=== PATIENT | female | born 1965 | race Two or more races ===

== ENCOUNTER → 2018-01-24 | Outpatient (CLI) | payer BC ==
--- NOTE | 2018-01-25 16:09 | Diagnostic Imaging Report ---
EXAMINATION: MRI of the cervical spine without contrast HISTORY: Neck pain, cervical radiculopathy COMPARISON: None available TECHNIQUE: Sagittal T1, T2, STIR; axial T2, gradient echo. FINDINGS: Curvature: Normal lordosis. Vertebrae: No evidence of neoplasm, infection, or fracture. Foramen magnum: No mass, Chiari malformation, or basilar invagination. Spinal Cord: Normal size and signal intensity. Soft Tissues: Unremarkable. Degenerative changes: C1-C2: Unremarkable. C2-C3: Facet arthrosis on the left side. No canal or foraminal stenoses C3-C4: Unremarkable. C4-C5: Mild bilateral facet arthrosis without stenoses C5-C6: Small disc osteophyte, mild uncovertebral and facet arthrosis. Minimal canal narrowing. No significant foraminal stenosis. C6-C7: Mild symmetric disc bulge, uncovertebral and facet arthrosis. No significant canal or foraminal stenosis. Possible partial ossification of the posterior longitudinal ligament at C5 and C6 without associated significant stenosis. C7-T1: Unremarkable. IMPRESSION: 1. Mild chronic degenerative changes as detailed above, without significant canal or foraminal stenosis. 2. Normal cervical spinal cord. Signed by: Dr. Yoselin Braun M.D. on 01/25/2018 4:06 PM
== END ==
LOC: MRI 12:08
PROVIDERS: ATTEND Family Medicine
DX: M50.10 Cervical disc disorder with radiculopathy, unspecified cervical region (principal)
CPT/HCPCS: 72141

== ENCOUNTER → 2018-02-25 | Outpatient (RCR) | payer BC | LOC: PT 02-03 08:39 | PROVIDERS: ATTEND Family Medicine | DX: M54.2 Cervicalgia (principal); M53.82 Other specified dorsopathies, cervical region; M62.81 Muscle weakness (generalized) | CPT/HCPCS: 97010 ×7; 97110 ×8; 97140 ×8; 97161; G0283 ×4 ==

== ENCOUNTER 2018-03-01 09:17 | Outpatient (RCR) | payer BC | END 2018-03-27 | LOC: PT 09:17 | PROVIDERS: ATTEND Family Medicine | DX: M54.2 Cervicalgia (principal); M53.82 Other specified dorsopathies, cervical region; M62.81 Muscle weakness (generalized) ==

== ENCOUNTER → 2018-07-28 | Outpatient (CLI) | payer BC | LOC: US 10:29 | PROVIDERS: ATTEND Obstetrics & Gynecology | DX: N92.1 Excessive and frequent menstruation with irregular cycle (principal) ==

== ENCOUNTER → 2018-11-23 | Outpatient (CLI) | payer BC ==
[2018-11-23 08:02] LABS: BASOPHILS % 0.3 % (0.0-1.0); EOSINOPHILS # (AUTO) 0.3 (0.0-0.4); EOSINOPHILS % 3.2 % (0.0-6.0); HEMATOCRIT 36.8 % (34.2-44.1); HEMOGLOBIN 11.9 g/dL (12.0-16.0); LYMPHOCYTES # (AUTO) 2.8 (1.0-3.2); LYMPHOCYTES % 29.5 % (18.0-39.1); MEAN CORPUSCULAR HEMOGLOBIN 26.5 pg (28-32); MEAN CORPUSCULAR HGB CONC 32.3 g/dL (31-35); MONOCYTES # (AUTO) 0.5 (0.2-0.8); MONOCYTES % 5.7 % (4.4-11.3); NEUTROPHILS # (AUTO) 5.8 (2.1-6.9); NEUTROPHILS % 61.1 % (38.7-80.0); PLATELET COUNT 351 x10e3/uL (140-360); RED BLOOD COUNT 4.49 x10e6/uL (3.6-5.1); RED CELL DISTRIBUTION WIDTH 13.3 % (11.7-14.4)
[2018-11-23 08:39] LABS: ALANINE AMINOTRANSFERASE 15 IU/L (0-55); ALBUMIN 3.6 g/dL (3.5-5.0); ALKALINE PHOSPHATASE 73 IU/L (40-150); BLOOD UREA NITROGEN 14 mg/dL (7-26); BUN/CREATININE RATIO 19 (6-25); CALCIUM 9.7 mg/dL (8.4-10.2); CARBON DIOXIDE 27 mmol/L (22-29); CHLORIDE 102 mmol/L (98-107); CHOL/HDL RATIO 2.9 (3.0-3.6); CHOLESTEROL 205 MD/DL (0-199); CREATININE, SERUM 0.72 mg/dL (0.57-1.11); EST GLOMERULAR FILTRATION RATE > 60 ML/MIN (60-); GLUCOSE 132 mg/dL (74-118); HDL CHOLESTEROL 71 MG/DL (40-60); LDL CHOLESTEROL 117 MG/DL (60-130); SODIUM 135 mmol/L (136-145); TRIGLYCERIDES 83 MG/DL (0-149)
[2018-11-23 08:44] LABS: FREE THYROXINE INDEX 2.5038 (1.4-3.8); THYROID STIMULATING HORMONE 1.119 uIU/mL (0.350-4.940)
== END ==
LOC: LAB 07:26
PROVIDERS: ATTEND Family Medicine
DX: Z00.00 Encounter for general adult medical examination without abnormal findings (principal); E11.9 Type 2 diabetes mellitus without complications; I10 Essential (primary) hypertension; E78.5 Hyperlipidemia, unspecified
CPT/HCPCS: 36415; 80053; 80061; 83036; 84436; 84443; 84479; 85025

== ENCOUNTER → 2019-03-02 | Outpatient (CLI) | payer BC ==
[2019-03-22 08:05] LABS: BASOPHILS % 0.3 % (0.0-1.0); EOSINOPHILS # (AUTO) 0.3 (0.0-0.4); EOSINOPHILS % 2.5 % (0.0-6.0); HEMATOCRIT 38.7 % (34.2-44.1); HEMOGLOBIN 12.1 g/dL (12.0-16.0); LYMPHOCYTES # (AUTO) 4.8 (1.0-3.2); LYMPHOCYTES % 43.8 % (18.0-39.1); MEAN CORPUSCULAR HEMOGLOBIN 25.2 pg (28-32); MEAN CORPUSCULAR HGB CONC 31.3 g/dL (31-35); MEAN CORPUSCULAR VOLUME 80.6 fL (81-99); MONOCYTES # (AUTO) 0.7 (0.2-0.8); MONOCYTES % 6.4 % (4.4-11.3); NEUTROPHILS # (AUTO) 5.1 (2.1-6.9); NEUTROPHILS % 46.6 % (38.7-80.0); PLATELET COUNT 307 x10e3/uL (140-360); RED CELL DISTRIBUTION WIDTH 13.6 % (11.7-14.4)
[2019-03-22 08:24] LABS: ALANINE AMINOTRANSFERASE 44 IU/L (0-55); ALBUMIN 3.5 g/dL (3.5-5.0); ALBUMIN/GLOBULIN RATIO 0.8 (0.8-2.0); ALKALINE PHOSPHATASE 94 IU/L (40-150); ANION GAP 13.1 mmol/L (8-16); BLOOD UREA NITROGEN 11 mg/dL (7-26); BUN/CREATININE RATIO 14 (6-25); CALCIUM 10.1 mg/dL (8.4-10.2); CARBON DIOXIDE 28 mmol/L (22-29); CHLORIDE 100 mmol/L (98-107); EST GLOMERULAR FILTRATION RATE > 60 ML/MIN (60-); GLUCOSE 118 mg/dL (74-118); POTASSIUM 4.1 mmol/L (3.5-5.1); SODIUM 137 mmol/L (136-145)
[2019-03-22 08:47] LABS: FREE THYROXINE INDEX 3.1112 (1.4-3.8); THYROID STIMULATING HORMONE 0.817 uIU/mL (0.350-4.940)
== END ==
LOC: MRI 07:46
PROVIDERS: ATTEND Family Medicine
DX: R42 Dizziness and giddiness (principal); R53.83 Other fatigue; R55 Syncope and collapse; R51 Headache; R19.7 Diarrhea, unspecified
CPT/HCPCS: 36415; 80053; 83001; 83615; 84436; 84443; 84479; 85025

== ENCOUNTER → 2019-04-03 | Outpatient (CLI) | payer BC ==
--- NOTE | 2019-04-03 17:04 | Diagnostic Imaging Report ---
MRI BRAIN WO HISTORY: Dizziness COMPARISON: None. TECHNIQUE: Sagittal T2, axial T2, axial T1, axial T2/FLAIR, axial gradient echo (or susceptibility weighted), coronal T2/FLAIR, and axial diffusion weighted MR images of the brain were obtained without contrast. DISCUSSION: Scalp/bone marrow: Unremarkable. Brain sulci: Appropriate for patient's age. Ventricles: Normal in size and configuration. No hydrocephalus. Extra-axial spaces: No masses or fluid collections. Parenchyma: Scattered T2/FLAIR hyperintense foci throughout the supratentorial white matter are likely chronic microvascular ischemic changes. Subtle focal encephalomalacia in the posterior medial right cerebellum may be from remote infarct. Otherwise, no mass, hemorrhage, or acute vascular insults. Vessels: Normal flow voids in major arteries and veins. Sellar/Suprasellar region: No abnormalities. Craniocervical junction: No abnormalities. Incidental findings: Moderate to severe diffuse left-sided T2 hyperintense paranasal sinus mucosal thickening is present. Trace bilateral mastoid effusions are present. IMPRESSION: 1. No acute intracranial abnormalities. 2. 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 3. Mild supratentorial chronic microvascular ischemic change. 4. Moderate to severe diffuse left-sided paranasal sinus mucosal thickening. Signed by: Dr. Miguelangel Krishna M.D. on 04/03/2019 5:01 PM
== END ==
LOC: MRI 11:53
PROVIDERS: ATTEND Family Medicine
DX: R42 Dizziness and giddiness (principal); R55 Syncope and collapse; R53.83 Other fatigue
CPT/HCPCS: 70551; 93880

== ENCOUNTER → 2019-05-12 | Outpatient (CLI) | payer BC | LOC: SLEEP 20:02 | PROVIDERS: ATTEND Family Medicine | DX: G47.33 Obstructive sleep apnea (adult) (pediatric) (principal) | CPT/HCPCS: 95810 ==

== ENCOUNTER → 2019-05-19 | Outpatient (CLI) | payer BC ==
--- NOTE | 2019-05-19 16:04 | Diagnostic Imaging Report ---
#[id number] - [id number] #UNILATERAL RIGHT DIGITAL DIAGNOSTIC MAMMOGRAM WITH SPOT COMPRESSION: 05/19/2019 Comparison is made to exams dated: 04/21/2019 mammogram - [facility] and 10/13/2017 mammogram - [facility]. The tissue of the right breast is heterogeneously dense. This may lower the sensitivity of mammography. There is a benign mass in the right breast. No significant masses, calcifications, or other findings are seen in the breast. There has been no significant interval change. IMPRESSION: BENIGN There is no mammographic evidence of malignancy. A 1 year screening mammogram is recommended. The patient will be notified by letter of the results. DEBBI CORTEZ M.D. kw/:05/19/2019 15:43:32 Dynamometer Tuner: Lakeisha MALIK(R)(M), [facility] letter sent: Compared to Prior B9 Mammogram BI-RADS: 2 Benign
--- NOTE | 2019-05-19 16:04 | Diagnostic Imaging Report ---
#[id number] - USBRELIMRT ULTRASOUND OF THE RIGHT BREAST : 05/19/2019 Comparison is made to exams dated: 05/19/2019 mammogram and 04/21/2019 mammogram - [facility]. Color flow and real-time ultrasound were performed on the right breast. Baron scale images of the real-time examination were reviewed. IMPRESSION: NEGATIVE There is no sonographic evidence of malignancy. A 1 year screening mammogram is recommended. DEBBI porter/pasquale:05/19/2019 15:44:28 Shipyard Painter Helper: Nela Isaac [facility], [facility] Ultrasound BI-RADS: 1 Negative
== END ==
LOC: MAMMO 13:31
PROVIDERS: ATTEND Family Medicine
DX: N63.10 Unspecified lump in the right breast, unspecified quadrant (principal)

== ENCOUNTER → 2019-06-17 | Outpatient (CLI) | payer BC ==
--- NOTE | 2019-06-30 03:49 | Polysomnography ---
DATE OF STUDY: 06/17/2019 REFERRING PHYSICIAN: Anthony Mcmahon TITRATION POLYSOMNOGRAM HISTORY: This is a 53-year-old female with obstructive sleep apnea. On May 12, 2019, diagnostic polysomnogram demonstrated an apnea-hypopnea index of 8.4 events per hour, 27.6 events per hour of REM sleep and the lowest oxygen saturation of 76%. There were additional periodic limb movement at 19.8 events per hours during the diagnostic portion as well as some PVCs. The patient had an [place] Sleepiness Scale score of 1. BMI is 26.9. The patient presents for a titration polysomnogram. FINDINGS: Polysomnogram revealed total sleep time of 347.5 minutes with a sleep efficiency of 91.4%. CPAP was initiated at 5 cm of water pressure, and incrementally increased to 11 cm of water delivered using a ResMed AirFit P10 for Her pillows interface in extra-small (ES) size, heated humidifier and chin-strap. Sleep apnea was optimally corrected at the final pressure setting of 11 cm water with the apnea-hypopnea index was 0 events per hour and the lowest oxygen saturation was 95%. This was an excellent titration with extensive supine REM sleep being studied. The periodic limb movement index was 0 events per hour. Single lead EKG analysis was unremarkable without PVCs noted. INTERPRETATION: This overnight CPAP titration study revealed: 1. Significant improvement in terms of the alleviation of obstructive sleep apnea. The optimal CPAP pressure of 11 cm of water delivered using a ResMed AirFit P10 for Her interface in Extra-Small size, heated humidifier and chin-strap. The same settings are recommended for use during sleep. MD KIN Field Certified in Sleep Medicine GMN/MODL /[id number] KELLY
== END ==
LOC: SLEEP 20:39
PROVIDERS: ATTEND Family Medicine
DX: G47.33 Obstructive sleep apnea (adult) (pediatric) (principal)
CPT/HCPCS: 95811

== ENCOUNTER → 2019-11-23 | Outpatient (CLI) | payer BC ==
[2019-11-23 07:57] LABS: BASOPHILS % 0.2 % (0.0-1.0); EOSINOPHILS # (AUTO) 0.3 (0.0-0.4); EOSINOPHILS % 2.6 % (0.0-6.0); HEMATOCRIT 39.6 % (34.2-44.1); HEMOGLOBIN 12.7 g/dL (12.0-16.0); LYMPHOCYTES # (AUTO) 3.6 (1.0-3.2); LYMPHOCYTES % 37.9 % (18.0-39.1); MEAN CORPUSCULAR HEMOGLOBIN 27.6 pg (28-32); MEAN CORPUSCULAR HGB CONC 32.1 g/dL (31-35); MEAN CORPUSCULAR VOLUME 86.1 fL (81-99); MONOCYTES # (AUTO) 0.5 (0.2-0.8); MONOCYTES % 5.4 % (4.4-11.3); NEUTROPHILS # (AUTO) 5.1 (2.1-6.9); NEUTROPHILS % 53.6 % (38.7-80.0); PLATELET COUNT 314 x10e3/uL (140-360); RED CELL DISTRIBUTION WIDTH 13.2 % (11.7-14.4)
[2019-11-23 08:19] LABS: ALANINE AMINOTRANSFERASE 24 IU/L (0-55); ALBUMIN 3.9 g/dL (3.5-5.0); ALKALINE PHOSPHATASE 78 IU/L (40-150); ANION GAP 11.3 mmol/L (8-16); BLOOD UREA NITROGEN 11 mg/dL (7-26); BUN/CREATININE RATIO 15 (6-25); CALCIUM 10.3 mg/dL (8.4-10.2); CARBON DIOXIDE 27 mmol/L (22-29); CHLORIDE 104 mmol/L (98-107); CHOL/HDL RATIO 2.5 (3.0-3.6); CHOLESTEROL 147 MD/DL (0-199); CREATININE, SERUM 0.74 mg/dL (0.57-1.11); EST GLOMERULAR FILTRATION RATE > 60 ML/MIN (60-); GLUCOSE 138 mg/dL (74-118); HDL CHOLESTEROL 60 MG/DL (40-60); LDL CHOLESTEROL 75 MG/DL (60-130); POTASSIUM 4.3 mmol/L (3.5-5.1); SODIUM 138 mmol/L (136-145); TRIGLYCERIDES 59 MG/DL (0-149)
== END ==
LOC: LAB 11-22 07:50
PROVIDERS: ATTEND Family Medicine
DX: E11.9 Type 2 diabetes mellitus without complications (principal); I10 Essential (primary) hypertension; E78.5 Hyperlipidemia, unspecified; E55.9 Vitamin D deficiency, unspecified
CPT/HCPCS: 36415; 80053; 80061; 82044; 83036; 85025

== ENCOUNTER → 2020-04-24 | Outpatient (CLI) | payer BC | LOC: MAMMO 10:02 | PROVIDERS: ATTEND Obstetrics & Gynecology | DX: Z12.31 Encounter for screening mammogram for malignant neoplasm of breast (principal) | CPT/HCPCS: 77067 ==

== ENCOUNTER → 2020-07-02 | Outpatient (CLI) | payer OTHER ==
[~2020-07-02] MED LIST: COVID-19 VACC, MRNA(MODERNA)/PF 100 MCG/0.5 ML VIAL IM ONE
== END ==
LOC: VACCPMC 08:00
DX: Z23 Encounter for immunization (principal); Z20.822 Contact with and (suspected) exposure to COVID-19

== ENCOUNTER → 2020-07-31 | Outpatient (CLI) | payer BC, OTHER ==
[2020-07-31 08:23] LABS: ALANINE AMINOTRANSFERASE 45 IU/L (0-55); ALBUMIN 4.1 g/dL (3.5-5.0); ALBUMIN/GLOBULIN RATIO 1.1 (0.8-2.0); ALKALINE PHOSPHATASE 75 IU/L (40-150); ANION GAP 16.3 mmol/L (8-16); BLOOD UREA NITROGEN 9 mg/dL (7-26); BUN/CREATININE RATIO 13 (6-25); CALCIUM 9.4 mg/dL (8.4-10.2); CARBON DIOXIDE 26 mmol/L (22-29); CHLORIDE 102 mmol/L (98-107); EST GLOMERULAR FILTRATION RATE > 60 ML/MIN (60-); GLUCOSE 143 mg/dL (74-118); POTASSIUM 4.3 mmol/L (3.5-5.1); SODIUM 140 mmol/L (136-145)
== END ==
LOC: LAB 07:25
PROVIDERS: ATTEND Family Medicine
DX: E11.9 Type 2 diabetes mellitus without complications (principal); E78.5 Hyperlipidemia, unspecified; I10 Essential (primary) hypertension
CPT/HCPCS: 36415; 80053; 83036

== ENCOUNTER → 2020-08-05 | Outpatient (CLI) | payer OTHER | END | DRG 951 | LOC: VACCPMC 09:09 | DX: Z23 Encounter for immunization (principal); Z20.822 Contact with and (suspected) exposure to COVID-19 | CPT/HCPCS: 0012A; 91301 ==

== ENCOUNTER → 2020-09-18 | Outpatient (CLI) | payer OTHER ==
[2020-09-18 08:33] LABS: BASOPHILS % 0.2 % (0.0-1.0); EOSINOPHILS # (AUTO) 0.3 (0.0-0.4); HEMATOCRIT 39.7 % (34.2-44.1); HEMOGLOBIN 12.7 g/dL (12.0-16.0); LYMPHOCYTES % 33.3 % (18.0-39.1); MEAN CORPUSCULAR HEMOGLOBIN 27.5 pg (28-32); MEAN CORPUSCULAR VOLUME 86.1 fL (81-99); MONOCYTES # (AUTO) 0.5 (0.2-0.8); MONOCYTES % 5.5 % (4.4-11.3); NEUTROPHILS # (AUTO) 5.2 (2.1-6.9); NEUTROPHILS % 57.7 % (38.7-80.0); PLATELET COUNT 324 x10e3/uL (140-360); RED BLOOD COUNT 4.61 x10e6/uL (3.6-5.1); RED CELL DISTRIBUTION WIDTH 13.5 % (11.7-14.4)
[2020-09-18 09:02] LABS: ALANINE AMINOTRANSFERASE 26 IU/L (0-55); ALBUMIN 4.1 g/dL (3.5-5.0); ALBUMIN/GLOBULIN RATIO 1.1 (0.8-2.0); ALKALINE PHOSPHATASE 84 IU/L (40-150); BLOOD UREA NITROGEN 15 mg/dL (7-26); BUN/CREATININE RATIO 22 (6-25); CALCIUM 9.3 mg/dL (8.4-10.2); CARBON DIOXIDE 26 mmol/L (22-29); CHLORIDE 103 mmol/L (98-107); CREATININE, SERUM 0.69 mg/dL (0.57-1.11); EST GLOMERULAR FILTRATION RATE > 60 ML/MIN (60-); GLUCOSE 147 mg/dL (74-118); SODIUM 140 mmol/L (136-145)
[2020-09-18 09:42] LABS: FREE THYROXINE INDEX 2.6254 (1.4-3.8); THYROID STIMULATING HORMONE 1.033 uIU/mL (0.350-4.940)
[2020-09-18 10:19] LABS: CHOL/HDL RATIO 2.6 (3.0-3.6); CHOLESTEROL 156 MD/DL (0-199); HDL CHOLESTEROL 59 MG/DL (40-60); LDL CHOLESTEROL 85 MG/DL (60-130); TRIGLYCERIDES 62 MG/DL (0-149)
== END ==
LOC: LAB 08:13
PROVIDERS: ATTEND Family Medicine
DX: Z00.00 Encounter for general adult medical examination without abnormal findings (principal); E11.9 Type 2 diabetes mellitus without complications; I10 Essential (primary) hypertension; E55.9 Vitamin D deficiency, unspecified; E78.5 Hyperlipidemia, unspecified
CPT/HCPCS: 36415; 80053; 80061; 82306; 82607; 83036; 84436; 84443; 84479; 85025

== ENCOUNTER → 2020-09-25 | Outpatient (RCR) | payer OTHER | LOC: PT 09-18 14:50 | PROVIDERS: ATTEND Family Medicine | DX: M50.13 Cervical disc disorder with radiculopathy, cervicothoracic region (principal) ==

== ENCOUNTER 2020-10-24 16:00 | Outpatient (RCR) | payer OTHER | END 2020-10-25 | LOC: PT 16:00 | PROVIDERS: ATTEND Family Medicine | DX: M50.13 Cervical disc disorder with radiculopathy, cervicothoracic region (principal); M62.81 Muscle weakness (generalized); M53.82 Other specified dorsopathies, cervical region | CPT/HCPCS: 97139 ==

== ENCOUNTER 2020-11-14 16:00 | Outpatient (RCR) | payer OTHER | END 2020-11-25 | LOC: PT 16:00 | PROVIDERS: ATTEND Family Medicine | DX: M50.13 Cervical disc disorder with radiculopathy, cervicothoracic region (principal) | CPT/HCPCS: 97139 ==

== ENCOUNTER → 2021-04-18 | Outpatient (CLI) | payer OTHER ==
[2021-04-18 08:43] LABS: ALBUMIN 3.7 g/dL (3.5-5.0); ALBUMIN/GLOBULIN RATIO 1.2 (0.8-2.0); ANION GAP 12.2 mmol/L (8-16); CALCIUM 8.7 mg/dL (8.4-10.2); CREATININE, SERUM 0.69 mg/dL (0.57-1.11); POTASSIUM 4.2 mmol/L (3.5-5.1)
[2021-04-18 09:11] LABS: CHOL/HDL RATIO 2.4 (3.0-3.6)
== END ==
LOC: RAD 07:12
PROVIDERS: ATTEND Family Medicine
DX: E11.9 Type 2 diabetes mellitus without complications (principal); I10 Essential (primary) hypertension; E78.5 Hyperlipidemia, unspecified; E55.9 Vitamin D deficiency, unspecified
CPT/HCPCS: 36415; 72110; 73521; 80053; 80061; 83036; 85651; 86140

== ENCOUNTER → 2021-04-25 | Outpatient (CLI) | payer OTHER | LOC: MAMMO 12:53 | PROVIDERS: ATTEND Family Medicine | DX: Z12.31 Encounter for screening mammogram for malignant neoplasm of breast (principal) | CPT/HCPCS: 77067 ==

== ENCOUNTER → 2022-01-24 | Day surgery (SDC) | payer BC ==
[2022-01-22 15:00] LABS: BASOPHILS % 0.2 % (0.0-1.0); EOSINOPHILS # (AUTO) 0.2 (0.0-0.4); EOSINOPHILS % 1.8 % (0.0-6.0); HEMATOCRIT 42.2 % (34.2-44.1); HEMOGLOBIN 13.3 g/dL (12.0-16.0); LYMPHOCYTES # (AUTO) 3.8 (1.0-3.2); LYMPHOCYTES % 31.8 % (18.0-39.1); MEAN CORPUSCULAR HEMOGLOBIN 26.7 pg (28-32); MEAN CORPUSCULAR HGB CONC 31.5 g/dL (31-35); MEAN CORPUSCULAR VOLUME 84.7 fL (81-99); MONOCYTES # (AUTO) 0.5 (0.2-0.8); MONOCYTES % 4.6 % (4.4-11.3); NEUTROPHILS # (AUTO) 7.2 (2.1-6.9); NEUTROPHILS % 61.2 % (38.7-80.0); PLATELET COUNT 310 x10e3/uL (140-360); RED BLOOD COUNT 4.98 x10e6/uL (3.6-5.1); RED CELL DISTRIBUTION WIDTH 14.9 % (11.7-14.4)
[~2022-01-24] MED LIST changes: +ASPIRIN81 MG PO; -COVID-19 VACC, MRNA(MODERNA)/PF 100 MCG/0.5 ML VIAL IM ONE; +EPHEDRINE SULFATE INJ 50 MG/ML VIAL ONE; +FENTANYL CITRATE/PF 100MCG/2 ML INJ ONE; +FISH OIL 1,0001 EAC2 PO; +HYOSCYAMINE SULFATE 0.5 MG/ML INJ ONE; +JARDIANCE10 MG PO; +LIDOCAINE HCL 2% LOCAL INJ 5 ML SDV VIAL INJ ONE; +LIPITOR10 MG PO; +LOSARTAN POTASS25 MG PO; +METFORMIN HCL500 MG PO; +MIDAZOLAM HCL 2 MG/2 ML VIAL ONE; +PHENYLEPHRINE HCL 1% 10 MG/ML VIAL ONE; +PROPOFOL IV EMULSION 10 MG/ML 20 ML VIAL ONE
[2022-01-24 11:15] VITALS: BP 108/74
== END | disposition home or self-care (01) ==
LOC: OR 08:01
PROVIDERS: ATTEND Internal Medicine Gastroenterology
DX: D12.2 Benign neoplasm of ascending colon (principal); D12.3 Benign neoplasm of transverse colon; K64.8 Other hemorrhoids; I10 Essential (primary) hypertension; Z68.26 Body mass index [BMI] 26.0-26.9, adult; Z86.73 Personal history of transient ischemic attack (TIA), and cerebral infarction without residual deficits; E11.9 Type 2 diabetes mellitus without complications; Z86.16 Personal history of COVID-19; G47.33 Obstructive sleep apnea (adult) (pediatric); E78.5 Hyperlipidemia, unspecified; Z79.82 Long term (current) use of aspirin; Z79.84 Long term (current) use of oral hypoglycemic drugs; Z01.810 Encounter for preprocedural cardiovascular examination; Z01.812 Encounter for preprocedural laboratory examination; Z20.822 Contact with and (suspected) exposure to COVID-19
CPT/HCPCS: 0223U; 36415 ×2; 45385; 82948; 85025; 93005; J1980; J2001; J2250; J2370; J2704; J3010; 45378; 45380

== ENCOUNTER → 2022-04-24 | Outpatient (CLI) | payer BC ==
[~2022-04-24] MED LIST changes: -EPHEDRINE SULFATE INJ 50 MG/ML VIAL ONE; -FENTANYL CITRATE/PF 100MCG/2 ML INJ ONE; -HYOSCYAMINE SULFATE 0.5 MG/ML INJ ONE; -LIDOCAINE HCL 2% LOCAL INJ 5 ML SDV VIAL INJ ONE; -MIDAZOLAM HCL 2 MG/2 ML VIAL ONE; -PHENYLEPHRINE HCL 1% 10 MG/ML VIAL ONE; -PROPOFOL IV EMULSION 10 MG/ML 20 ML VIAL ONE
== END ==
LOC: MAMMO 07:13
PROVIDERS: ATTEND Family Medicine
DX: Z12.31 Encounter for screening mammogram for malignant neoplasm of breast (principal)
CPT/HCPCS: 77067

== ENCOUNTER → 2022-05-04 | Outpatient (CLI) | payer BC ==
[2022-05-04 06:57] LABS: BASOPHILS % 0.3 % (0.0-1.0); EOSINOPHILS # (AUTO) 0.3 (0.0-0.4); EOSINOPHILS % 2.6 % (0.0-6.0); HEMATOCRIT 43.4 % (34.2-44.1); HEMOGLOBIN 13.5 g/dL (12.0-16.0); LYMPHOCYTES # (AUTO) 3.3 (1.0-3.2); LYMPHOCYTES % 34.3 % (18.0-39.1); MEAN CORPUSCULAR HEMOGLOBIN 27.1 pg (28-32); MEAN CORPUSCULAR HGB CONC 31.1 g/dL (31-35); MONOCYTES # (AUTO) 0.5 (0.2-0.8); MONOCYTES % 5.5 % (4.4-11.3); NEUTROPHILS # (AUTO) 5.4 (2.1-6.9); PLATELET COUNT 299 x10e3/uL (140-360); RED BLOOD COUNT 4.99 x10e6/uL (3.6-5.1); RED CELL DISTRIBUTION WIDTH 13.9 % (11.7-14.4)
[2022-05-04 07:21] LABS: ALBUMIN 3.9 g/dL (3.5-5.0); ALBUMIN/GLOBULIN RATIO 1.1 (0.8-2.0); CALCIUM 9.5 mg/dL (8.4-10.2); CHOL/HDL RATIO 2.3 (3.0-3.6); CREATININE, SERUM 0.74 mg/dL (0.57-1.11)
[2022-05-04 07:44] LABS: THYROID STIMULATING HORMONE 1.512 uIU/mL (0.350-4.940)
== END ==
LOC: LAB 06:42
PROVIDERS: ATTEND Family Medicine
DX: E11.65 Type 2 diabetes mellitus with hyperglycemia (principal); E78.5 Hyperlipidemia, unspecified; I10 Essential (primary) hypertension; E55.9 Vitamin D deficiency, unspecified; E04.9 Nontoxic goiter, unspecified
CPT/HCPCS: 36415; 80053; 80061; 83036; 84443; 85025

== ENCOUNTER → 2023-04-23 | Outpatient (REF) | payer BC | LOC: MAMMO 10:23 | PROVIDERS: ATTEND Family Medicine | DX: Z12.31 Encounter for screening mammogram for malignant neoplasm of breast (principal) | CPT/HCPCS: 77067 ==

== ENCOUNTER → 2024-04-24 | Outpatient (REF) | payer BC | LOC: MAMMO 12:14 | PROVIDERS: ATTEND Family Medicine | DX: Z12.31 Encounter for screening mammogram for malignant neoplasm of breast (principal) | CPT/HCPCS: 77067 ==

== ENCOUNTER → 2025-04-24 | Outpatient (REF) | payer BC | LOC: MAMMO 14:54 | PROVIDERS: ATTEND Family Medicine | DX: Z12.31 Encounter for screening mammogram for malignant neoplasm of breast (principal) | CPT/HCPCS: 77067 ==